=== PATIENT | male | born 1975 | race Caucasian/White ===

== ENCOUNTER → 2017-02-24 | Outpatient (CLI) | payer OTHER ==
[~2017-02-24] MED LIST: ALLEGRA PO; AMBIEN PO; AMBIEN10 MG PO; AVODART0.5 MG PO; BAYER CHEWABLE81 MG PO; BYSTOLIC10 MG PO; BYSTOLIC5 MG PO; COREG PO; DITROPAN5 MG PO; FLOMAX0.4 M1 PO; GLIPIZIDE10 MG PO; HYOSCYAMINE0.125 M1 SL; LASIX PO; LIPITOR20 MG PO; METOPROLOL SUCC25 MG PO; MEVACOR PO; MEVACOR40 MG PO; OMEPRAZOLE20 M2 PO; OTC ALLERGY MED; PERCOCET PO; SKELAXIN PO; SYMBYAX PO; SYNTHROID PO; SYNTHROID0.05 MG PO; TRILIPIX135 MG PO
--- NOTE | ~2017-02-24 | CT2 ---
[facility] A Service of [facility] RADIOLOGY TEXT RESULTS PATIENT: BRIANNA MARTINEZ LOCATION: [facility] : 79 UNIT #: [id number] AGE: [address]: Dwight Partida MD SEX: M ORDER DR: [id number] [place], [place] [address] [id number] O MR#: [id number] Acc #: [id number] NAME: BRIANNA MARTINEZ : 1975 SEX: M STUDY DATE/TIME: 02/24/2017 10:16 UNIT: [facility] ROOM: STUDY DESCRIPTION: CT Abd and Pelv W Cont Attending Physician: Dwight Partida M.D. Referring Physician: Dwight Partida M.D. Ordering Physician: Dwight Partida M.D. Primary Care Physician: Altaf Blankenship M.D. MEDICAL IMAGING REPORT This report is preliminary unless electronic signature is present EXAM CT abdomen and pelvis with contrast INDICATIONS Umbilical region pain for several years, worsening over the past few months. TECHNIQUE Contrast-enhanced CT of the abdomen and pelvis. This CT exam was performed with one or more of the following radiation dose reduction techniques: automatic exposure control, adjustment of mA and/or kV according to patient size, and iterative reconstruction. COMPARISON 02/08/2015 FINDINGS ABDOMEN WITH CONTRAST: Included lung bases are clear. The liver, spleen, kidneys, adrenal glands, pancreas are unremarkable. Previous cholecystectomy. Moderate colonic stool burden. PELVIS WITH CONTRAST: Prostate measures 5.6 cm and has low attenuation. No pelvic mass or fluid. No aggressive appearing bone lesion. IMPRESSION 1. No acute findings in the abdomen or pelvis. 2. Moderate colonic stool burden. 3. Prostatomegaly has increased since 2014, now 5.6 cm, previously 4.5 cm. Correlate with any referable symptoms. This could be seen in the setting of prostatitis. [facility] A Service of [facility] RADIOLOGY TEXT RESULTS PATIENT: BRIANNA MARTINEZ LOCATION: [facility] : 79 UNIT #: [id number] AGE: [address]: Dwight Partida MD SEX: M ORDER DR: Dictated by... Fahad Aden M.D. THIS IS AN ELECTRONICALLY VERIFIED REPORT Fahad Aden M.D. at 02/26/2017 7:09 AM EED/pcl TD: 02/24/2017 17:59 JOB #: [id number] MEDICAL IMAGING REPORT Page 1 of 1 COPY
== END | disposition home or self-care (01) ==
LOC: CCAT 08:55
DX: R10.84 Generalized abdominal pain (principal); N40.0 Benign prostatic hyperplasia without lower urinary tract symptoms
CPT/HCPCS: 74177; Q9967